=== PATIENT | female | born 1995 | race Caucasian/White ===

== ENCOUNTER 2021-01-07 17:41 | Observation (INO) ==
[2021-01-07] MEDS ORDERED: 0.9 % Sodium Chloride 1,000 ML IVC SCH (23:45)
[2021-01-07] MEDS ORDERED: Naloxone 0.4 MG/ML INJ IVP PRN (23:51)
[2021-01-07] MEDS ORDERED: Ondansetron 4 MG/2 ML VIAL IVP PRN (23:51)
[2021-01-07] MEDS ORDERED: Ketorolac 30 MG/ML VIAL IVP PRN (23:51)
[2021-01-08 05:40] LABS: Basophils % 0.3 %; Eosinophils # 0.1 K/mcL (0.0-0.6); Eosinophils % 1.4 %; Hematocrit 36.1 % (35.3-44.9); Immature Granulocytes % 0.2 % (0-4); Lymphocytes # 2.6 K/mcL (0.6-4.6); Lymphocytes % 27.9 %; Mean Corpuscular HGB Conc 33.2 g/dL (31.6-35.5); Mean Corpuscular Hemoglobin 28.9 pg (28.0-33.3); Mean Platelet Volume 12.3 fL (9.4-12.4); Monocytes # 0.8 K/mcL (0.0-1.3); Monocytes % 7.9 %; Neutrophils # 5.9 K/mcL (1.6-8.9); Platelet Count 231 K/mcL (140-400); Red Blood Count 4.15 M/mcL (3.82-4.97); Red Cell Distribution Width 12.3 % (11.5-14.5); Segmented Neutrophils % 62.3 %; White Blood Count 9.5 K/mcL (4.3-11.1)
[2021-01-08 06:02] LABS: BUN/Creatinine Ratio 11 (6-26); Blood Urea Nitrogen 10 mg/dL (6-20); Carbon Dioxide 26 mEq/L (23-29); Chloride 108 mEq/L (98-107); Glucose 92 mg/dL (70-105); Osmolality,Calculated 289 (280-300); Potassium 3.7 mEq/L (3.5-5.1); Sodium 140 mEq/L (136-145); eGFR For African Americans > 60 (> 60); eGFR For Non-African Americans > 60 (> 60)
[2021-01-08] MEDS ORDERED: cefTRIAXone 1,000 MG in 0.9 % Sodium Chloride Mini Bag 100 ML IVPB SCH (09:00)
[2021-01-08 09:04] LABS: Bacteria,Urine Few per hpf (None-Few); Bilirubin,Urine Negative (Negative); Blood,Urine Large (Negative); Clarity,Urine Turbid (Clear); Color,Urine Yellow (Yellow); Glucose,Urine (UA) Normal (Normal); Ketones,Urine Negative (Negative); Leukocyte Esterase,Urine Moderate (Negative); Mucus,Urine Few per lpf (None-Few); Nitrite,Urine Negative (Negative); PH,Urine 5.5 pH Units (5.0-8.0); Protein,Urine 30 mg/dL (Neg-Trace); RBC,Urine 50-100 per hpf (0-3); Specific Gravity,Urine 1.024 (1.010-1.025); Squamous Epithelial Cell,Urine Many per hpf (None-Few); Urobilinogen,Urine Normal (Normal); WBC,Urine 50-100 per hpf (0-3)
[2021-01-08] MEDS ORDERED: 0.9 % Sodium Chloride 1,000 ML IVC SCH (10:30)
[2021-01-08] MEDS ORDERED: Pantoprazole 40 MG VIAL IVP SCH (10:30)
[2021-01-08] MEDS ORDERED: Lidocaine -MPF 2% 2 ML VIAL ONE (12:02)
[2021-01-08] MEDS ORDERED: *HR* Midazolam HCl 2 MG/2 ML VIAL ONE (12:02)
[2021-01-08] MEDS ORDERED: Ondansetron 4 MG/2 ML VIAL ONE (12:02)
[2021-01-08] MEDS ORDERED: *HR* FentaNYL (PF) 100 MCG/2 ML VIAL ONE (12:02)
[2021-01-08] MEDS ORDERED: *HR* Propofol 200 MG/20 ML VIAL IVP ONE (12:02)
[2021-01-08] MEDS ORDERED: *HR* HYDROmorphone PF 0.5 MG/0.5 ML SYRINGE IVP PRN (12:18)
[2021-01-08] MEDS ORDERED: Ondansetron 4 MG/2 ML VIAL IVP PRN ×2 (12:18→14:06)
[2021-01-08] MEDS ORDERED: *HR* OxyCODONE Immed Rel 5 MG TABLET PO PRN (12:18)
[2021-01-08] MEDS ORDERED: Isovue-300 50ML VIAL ONE (12:38)
[2021-01-08] MEDS ORDERED: Ketorolac 30 MG/ML VIAL IVP PRN (14:06)
[2021-01-08] MEDS ORDERED: Naloxone 0.4 MG/ML INJ IVP PRN (14:06)
[2021-01-08] MEDS: 0.9 % Sodium Chloride 1,000 ML IVC SCH (18:24)
[2021-01-08] MEDS ORDERED: *HR* Belladonna Alkaloids/Opium 60 MG RECTAL SUPPOSITORY RC PRN (18:43)
[2021-01-08] MEDS ORDERED: Hyoscyamine SL 0.125 MG TAB.SUBL SL PRN (18:46)
[2021-01-08] MEDS: *HR* HYDROcodone/Acet 10/325 mg TABLET PO PRN (19:31)
[2021-01-09 03:42] VITALS: O2SAT 97
[2021-01-09] MEDS: 0.9 % Sodium Chloride 1,000 ML IVC SCH (05:37)
[2021-01-09 07:13] VITALS: BP 148/76; PULSE 56; TEMP 98.5
[2021-01-09] MEDS: *HR* HYDROcodone/Acet 10/325 mg TABLET PO PRN (07:30)
[2021-01-09] MEDS ORDERED: Pantoprazole 40 MG VIAL IVP SCH (09:00)
[2021-01-09] MEDS ORDERED: cefTRIAXone 1,000 MG in 0.9 % Sodium Chloride Mini Bag 100 ML IVPB SCH (09:00)
[2021-01-13 09:02] LABS: Calculi Mass 9 mg
== END 2021-01-09 11:24 | disposition home or self-care (01) ==
LOC: 3BNU → SUATTDRO 21:46 → MERGE 21:46
PROVIDERS: ADMIT Family Medicine; ATTEND Internal Medicine